=== PATIENT | male | born 1980 | race Caucasian/White ===

== ENCOUNTER 2017-04-11 19:29 | Emergency (ER) | payer OTHER ==
[2017-04-11 21:59] LABS: ABS Basophils 0.1 10^3/ul (0-0.2); ABS Eosinophils 0.2 10^3/ul (0-0.6); ABS Monocytes 0.5 10^3/ul (0-0.8); ABS Neutrophils 3.4 10^3/ul (1.5-7.7); ABS Nucleated RBC 0 10^3/ul; Eosinophil % 2.4 % (0-6); Hematocrit 43 % (42-52); Hemoglobin 14.6 g/dl (14.0-18.0); Mean Corpuscular HGB Conc 34 g/dl (31-36); Mean Corpuscular Hemoglobin 32 pg (27-31); Mean Corpuscular Volume 93 fL (80-94); Mean Platelet Volume 9 um3 (7.4-10.4); Nucleated Red Blood Cells % 0; Platelet Count 210 10^3/ul (150-450); Red Blood Count 4.61 10^6/ul (4.0-5.4); Red Cell Distribution Width 13 % (10.5-15); White Blood Count 7.2 10^3/ul (3.5-10.8)
[2017-04-11 22:10] LABS: EGFR Non-African American 63.6 (>60)
[2017-04-11 22:59] LABS: Urine Appearance Clear; Urine Blood Negative (Negative); Urine Color Yellow; Urine Ketones Trace (Negative); Urine Protein 1+(30 mg/dL) (Negative); Urine Specific Gravity 1.034 (1.010-1.030); Urine Urobilinogen Negative (Negative)
[2017-04-11] MEDS: Pantoprazole IV* 40 MG IV ONE (23:08)
[2017-04-11] MEDS: NS 0.9% 1000 ML* 1,000 ML IV ONE (23:08)
[2017-04-11] MEDS: Morphine INJ* 10 MG/ML 1 ML CARPUJECT IV ONE (23:08)
[2017-04-11] MEDS: Metoclopramide IV* 5 MG/ML 2 ML VIAL IV SLOW PU ONE (23:08)
[2017-04-12 00:46] VITALS: BP 117/65
--- NOTE | 2017-04-12 00:59 | ED ---
Robb Bryant Stephanie, scribed for Alejo Stevens MD on 04/11/17 at 2316 . Abdominal Pain/Male - HPI Summary HPI Summary: The pt is a 37 y/o M presenting to the ED with c/o abd pain that has been constant since yesterday. The pt reports intermittent abd pain for the past few months. He denies N/V/D. - History of Current Complaint Chief Complaint: EDAbdPain Stated Complaint: ABD PAIN Time Seen by Provider: 04/11/17 22:31 Hx Obtained From: Patient Onset/Duration: Gradual Onset, Lasting Days - 1, Still Present Timing: Constant Severity Currently: Moderate Pain Intensity: 5 Pain Scale Used: 0-10 Numeric Location: Discrete At: RUQ Radiates: No Aggravating Factor(s): Nothing Alleviating Factor(s): Nothing Associated Signs And Symptoms: Negative: Nausea, Vomiting, Diarrhea - Allergies/Home Medications Allergies/Adverse Reactions: Allergies Allergy/AdvReac Type Severity Reaction Status Date / Time No Known Allergies Allergy Verified 04/11/17 19:33 PMH/Surg Hx/FS Hx/Imm Hx Endocrine/Hematology History: Denies: Hx Diabetes Cardiovascular History: Denies: Hx Angina, Hx Coronary Artery Disease, Hx Hypercholesterolemia, Hx Hypertension, Hx Myocardial Infarction, Hx Valvular Heart Disease Respiratory History: Denies: Hx Asthma, Hx Chronic Obstructive Pulmonary Disease (COPD) Sensory History: Denies: Hx Contacts or Glasses Opthamlomology History: Denies: Hx Contacts or Glasses - Surgical History Surgery Procedure, Year, and Place: None Infectious Disease History: No Infectious Disease History: Denies: Hx Clostridium Difficile, Hx Hepatitis, Hx Human Immunodeficiency Virus (HIV), Traveled Outside the [place] in Last 30 Days - Family History Known Family History: Positive: Other - colon cancer, MS - Social History Occupation: Employed Part-time Lives: Alone Alcohol Use: None Substance Use Type: Reports: Marijuana Smoking Status (MU): Former Smoker Review of Systems Negative: Fever Positive: Abdominal Pain. Negative: Vomiting, Diarrhea, Nausea All Other Systems Reviewed And Are Negative: Yes Physical Exam - Summary Physical Exam Summary: VITAL SIGNS: Reviewed. GENERAL: Patient is a well-developed and nourished MALE who is lying comfortable in the stretcher. Patient is not in any acute respiratory distress. HEAD AND FACE: No signs of trauma. No ecchymosis, hematomas or skull depressions. No sinus tenderness. EYES: PERRLA, EOMI x 2, No injected conjunctiva, no nystagmus. EARS: Hearing grossly intact. Ear canals and tympanic membranes are within normal limits. MOUTH: Oropharynx within normal limits. NECK: Supple, trachea is midline, no adenopathy, no JVD, no carotid bruit, no c- spine tenderness, neck with full ROM. CHEST: Symmetric, no tenderness at palpation LUNGS: Clear to auscultation bilaterally. No wheezing or crackles. CVS: Regular rate and rhythm, S1 and S2 present, no murmurs or gallops appreciated. ABDOMEN: Soft, non-tender. No signs of distention. No rebound no guarding, and no masses palpated. Bowel sounds are normal. EXTREMITIES: FROM in all major joints, no edema, no cyanosis or clubbing. NEURO: Alert and oriented x 3. No acute neurological deficits. Speech is normal and follows commands. SKIN: Dry and warm Triage Information Reviewed: Yes Vital Signs On Initial Exam: Initial Vitals Temp Pulse Resp BP Pulse Ox 96.9 F 103 18 137/87 96 04/11/17 19:31 04/11/17 19:31 04/11/17 19:31 04/11/17 19:31 04/11/17 19:31 Vital Signs Reviewed: Yes Diagnostics - Vital Signs Vital Signs Temp Pulse Resp BP Pulse Ox 04/11/17 21:51 97.7 F 87 20 125/75 98 04/11/17 19:31 96.9 F 103 18 137/87 96 - Laboratory Lab Results: Lab Results 04/11/17 04/11/17 04/11/17 Range/Units 21:40 21:40 21:40 WBC 7.2 (3.5-10.8) 10^3/ul RBC 4.61 (4.0-5.4) 10^6/ul Hgb 14.6 (14.0-18.0) g/dl Hct 43 (42-52) % MCV 93 (80-94) fL MCH 32 H (27-31) pg MCHC 34 (31-36) g/dl RDW 13 (10.5-15) % Plt Count 210 (150-450) 10^3/ul MPV 9 (7.4-10.4) um3 Neut % (Auto) 47.7 (38-83) % Lymph % (Auto) 42.0 (25-47) % [place]yer % (Auto) 7.1 (1-9) % Eos % (Auto) 2.4 (0-6) % Baso % (Auto) 0.8 (0-2) % Absolute Neuts (auto) 3.4 (1.5-7.7) 10^3/ul Absolute Lymphs (auto) 3.0 (1.0-4.8) 10^3/ul Absolute Monos (auto) 0.5 (0-0.8) 10^3/ul Absolute Eos (auto) 0.2 (0-0.6) 10^3/ul Absolute Basos (auto) 0.1 (0-0.2) 10^3/ul Absolute Nucleated RBC 0 10^3/ul Nucleated RBC % 0 Sodium 137 (133-145) mmol/L Potassium 4.0 (3.5-5.0) mmol/L Chloride 105 (101-111) mmol/L Carbon Dioxide 25 (22-32) mmol/L Anion Gap 7 (2-11) mmol/L BUN 24 (6-24) mg/dL Creatinine 1.28 H (0.67-1.17) mg/dL Est GFR ( Amer) 81.8 (>60) Est GFR (Non-Af Amer) 63.6 (>60) BUN/Creatinine Ratio 18.8 (8-20) Glucose 109 H (70-100) mg/dL Lactic Acid 0.7 (0.5-2.0) mmol/L Calcium 9.7 (8.6-10.3) mg/dL Total Bilirubin 0.40 (0.2-1.0) mg/dL AST 36 (13-39) U/L ALT 67 H (7-52) U/L Alkaline Phosphatase 48 (34-104) U/L C-Reactive Protein 2.66 (< 5.00) mg/L Total Protein 7.1 (6.4-8.9) g/dL Albumin 4.5 (3.2-5.2) g/dL Globulin 2.6 (2-4) g/dL Albumin/Globulin Ratio 1.7 (1-3) Lipase 35 (11.0-82.0) U/L Urine Color Urine Appearance Urine pH (5-9) Ur Specific [place] (1.010-1.030) Urine Protein (Negative) Urine Ketones (Negative) Urine Blood (Negative) Urine Nitrate (Negative) Urine Bilirubin (Negative) Urine Urobilinogen (Negative) Ur Leukocyte Esterase (Negative) Urine WBC (Auto) (Absent) Urine RBC (Auto) (Absent) Urine Bacteria (Absent) Urine Glucose (Negative) Urine Ascorbic Acid (Negative) 04/11/17 Range/Units 22:45 WBC (3.5-10.8) 10^3/ul RBC (4.0-5.4) 10^6/ul Hgb (14.0-18.0) g/dl Hct (42-52) % MCV (80-94) fL MCH (27-31) pg MCHC (31-36) g/dl RDW (10.5-15) % Plt Count (150-450) 10^3/ul MPV (7.4-10.4) um3 Neut % (Auto) (38-83) % Lymph % (Auto) (25-47) % Sawyer % (Auto) (1-9) % Eos % (Auto) (0-6) % Baso % (Auto) (0-2) % Absolute Neuts (auto) (1.5-7.7) 10^3/ul Absolute Lymphs (auto) (1.0-4.8) 10^3/ul Absolute Monos (auto) (0-0.8) 10^3/ul Absolute Eos (auto) (0-0.6) 10^3/ul Absolute Basos (auto) (0-0.2) 10^3/ul Absolute Nucleated RBC 10^3/ul Nucleated RBC % Sodium (133-145) mmol/L Potassium (3.5-5.0) mmol/L Chloride (101-111) mmol/L Carbon Dioxide (22-32) mmol/L Anion Gap (2-11) mmol/L BUN (6-24) mg/dL Creatinine (0.67-1.17) mg/dL Est GFR ( Amer) (>60) Est GFR (Non-Af Amer) (>60) BUN/Creatinine Ratio (8-20) Glucose (70-100) mg/dL Lactic Acid (0.5-2.0) mmol/L Calcium (8.6-10.3) mg/dL Total Bilirubin (0.2-1.0) mg/dL AST (13-39) U/L ALT (7-52) U/L Alkaline Phosphatase (34-104) U/L C-Reactive Protein (< 5.00) mg/L Total Protein (6.4-8.9) g/dL Albumin (3.2-5.2) g/dL Globulin (2-4) g/dL Albumin/Globulin Ratio (1-3) Lipase (11.0-82.0) U/L Urine Color Yellow Urine Appearance Clear Urine pH 5.0 (5-9) Ur Specific [place] 1.034 H (1.010-1.030) Urine Protein 1+(30 mg/dl) H (Negative) Urine Ketones Trace H (Negative) Urine Blood Negative (Negative) Urine Nitrate Negative (Negative) Urine Bilirubin Negative (Negative) Urine Urobilinogen Negative (Negative) Ur Leukocyte Esterase Negative (Negative) Urine WBC (Auto) Trace(0-5/hpf) (Absent) Urine RBC (Auto) Absent (Absent) Urine Bacteria Absent (Absent) Urine Glucose Negative (Negative) Urine Ascorbic Acid * H (Negative) Result Diagrams: 04/11/17 21:40 04/11/17 21:40 Lab Statement: Any lab studies that have been ordered have been reviewed, and results considered in the medical decision making process. - Additional Comments Diagnostic Additional Comments: US gallbladder reveals: Enlarged fatty liver with probable small focus of fatty sparing which can be confirmed with MRI as clinically indicated. Abdominal Pain Fem Course/Dx - Course Course Of Treatment: The pt is a 37 y/o M presenting to the ED with c/o abd pain that has been constant since yesterday. The pt reports intermittent abd pain for the past few months. He denies N/V/D. The pt reports feeling better now. He will be discharged home. - Diagnoses Provider Diagnoses: Gastroesophageal reflux Discharge - Discharge Plan Condition: Stable Disposition: HOME Patient Education Materials: Gastroesophageal Reflux Disease (ED) Referrals: Billy Verduzco MD [Primary Care Provider] - 3 Days Additional Instructions: RETURN TO EMERGENCY DEPARTMENT FOR ANY NEW OR WORSENING SYMPTOMS The documentation as recorded by the Robb yap Stephanie accurately reflects the service I personally performed and the decisions made by , Alejo Stevens MD.
--- NOTE | 2017-04-12 07:44 | RAD ---
INDICATION: Abdominal pain. COMPARISON: There are no prior studies available for comparison. TECHNIQUE: Multiple real-time images of the right upper quadrant were obtained. FINDINGS: The gallbladder appear normal. No gallbladder wall thickening or pericholecystic fluid is present. No intra or extrahepatic ductal distention is present. The common bile duct measured 0.4 cm in diameter. The liver is mildly enlarged and increased in echogenicity most consistent with fatty infiltration. There is a small 1.0 x 1.0 x 1.1 cm hypoechoic area present in the anterior aspect of the right hepatic lobe possibly representing a focal area of sparing although nonspecific. The pancreas is partially obscured by overlying bowel gas. There is a trace amount of ascites along the anterior aspect of the liver. The right kidney is normal in size without evidence for hydronephrosis. IMPRESSION: 1. NORMAL EXAMINATION OF THE GALLBLADDER. 2. MILD HEPATIC MEGALY AND FINDINGS MOST CONSISTENT WITH FATTY INFILTRATION. 3. SMALL HYPOECHOIC AREA IN THE LIVER POSSIBLY REPRESENTING FOCAL SPARING ALTHOUGH NONSPECIFIC THIS COULD BE FURTHER EVALUATED WITH AN MRI OF THE LIVER. 3. TRACE AMOUNT OF FREE INTRAPERITONEAL FLUID.
== END 2017-04-12 01:22 | disposition home or self-care (01) ==
LOC: ED 19:29
DX: K21.9 Gastro-esophageal reflux disease without esophagitis (principal); Z87.891 Personal history of nicotine dependence
CPT/HCPCS: 36415; 76705; 80053; 81003; 81015; 83605; 83690; 85025; 86140; 96374; 96375; 99282; J2270; J2765